=== PATIENT | male | born 1975 | race Caucasian/White ===

== ENCOUNTER 2020-04-09 06:08 | Emergency (ER) | payer MEDICAID ==
[~2020-04-09] VITALS: Ht 180.3 cm; Wt 94.3 kg
[2020-04-09 06:43] VITALS: BP_SYST 126
[2020-04-09 08:27] VITALS: BP_SYST 126
== END 2020-04-09 08:22 | disposition home or self-care (01) ==
LOC: SED 06:08
DX: H00.012 Hordeolum externum right lower eyelid (principal); M25.562 Pain in left knee
CPT/HCPCS: 73564; 99283

== ENCOUNTER 2020-06-08 18:32 | Emergency (ER) | payer MEDICAID ==
[~2020-06-08] VITALS: Ht 182.9 cm; Wt 88.5 kg
--- NOTE | 2020-06-08 18:40 | NUR ---
Pt walked in to ER with c/o choking. 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 V/S stable, pt is afebrile. Placed in waiting room until bed available.
[2020-06-08 18:48] VITALS: BP_SYST 140
--- NOTE | 2020-06-08 19:10 | NUR ---
ER Dr. Baugh at bedside examining patient.
[2020-06-08] MEDS ORDERED: DIPHENHYDRAMINE INJ 50 MG/ML VIAL IM ONE (19:15)
[2020-06-08 19:26] VITALS: BP_SYST 140
[2020-06-08] MEDS ORDERED: ONDANSETRON HCL 4 MG/2 ML VIAL ONE (21:58)
[2020-06-08] MEDS ORDERED: KETOROLAC TROMETHAMINE 30 MG VIAL ONE (21:58)
--- NOTE | 2020-06-09 18:38 | NUR ---
REFERANCE DOWNTIME PAPERWORK
== END 2020-06-08 23:56 | disposition home or self-care (01) ==
LOC: SED 18:32
DX: S10.15XA Superficial foreign body of throat, initial encounter (principal); I10 Essential (primary) hypertension; X58.XXXA Exposure to other specified factors, initial encounter; Y93.89 Activity, other specified; Y92.89 Other specified places as the place of occurrence of the external cause; Y99.8 Other external cause status
CPT/HCPCS: 70360; 70490; 96372; 99284; J1200; J1885; J2405

== ENCOUNTER 2021-08-03 11:44 | Emergency (ER) | payer MEDICAID ==
[~2021-08-03] VITALS: Ht 180.3 cm; Wt 88.5 kg
[2021-08-03 12:00] VITALS: BP_SYST 130
[2021-08-03 12:53] LABS: BASOPHILS % (AUTO) 0.7 % (0.0-2.0); EOSINOPHILS # (AUTO) 0.2 K/uL (0.0-0.4); EOSINOPHILS % (AUTO) 3.9 % (0.0-4.0); HEMATOCRIT 44.3 % (36-54); HEMOGLOBIN 15.1 g/dL (14.0-18.0); LYMPHOCYTES # (AUTO) 2.2 K/uL (1.0-5.5); MEAN CORPUSCULAR HEMOGLOBIN 29 pg (27-31); MEAN CORPUSCULAR HGB CONC 34 % (32-36); MEAN CORPUSCULAR VOLUME 85 fL (79.0-98.0); MONOCYTES # (AUTO) 0.4 K/uL (0.0-1.0); MONOCYTES % (AUTO) 8.7 % (1.7-9.3); NEUTROPHILS # (AUTO) 1.5 K/uL (1.8-7.7); NEUTROPHILS % (AUTO) 35.7 % (40.0-70.0); PLATELET COUNT (AUTO) 169 K/uL (130-430); RED CELL DISTRIBUTION WIDTH 13.7 % (9.0-15.0); WHITE BLOOD COUNT (AUTO) 4.3 K/uL (4.8-10.8)
[2021-08-03 13:04] LABS: CALCIUM 8.9 mg/dL (8.4-11.0); CREATININE 1.42 mg/dL (0.55-1.30); POTASSIUM 4.4 mmol/L (3.5-5.1)
[2021-08-03 13:10] LABS: ALBUMIN 3.9 g/dL (3.4-4.8); TOTAL BILIRUBIN 0.6 mg/dL (0.0-1.0)
[2021-08-03 13:18] LABS: PROTHROMBIN TIME 10.6 SECS (9.5-12.5)
[2021-08-03 15:31] VITALS: BP_SYST 128
[2021-08-04] MEDS ORDERED: IBUPROFEN 800 MG TABLET ONE (00:37)
== END 2021-08-03 15:31 | disposition home or self-care (01) ==
LOC: SED 11:44
DX: R20.2 Paresthesia of skin (principal); I49.9 Cardiac arrhythmia, unspecified
CPT/HCPCS: 36415; 70450-TC; 71045; 76376; 80053; 83605; 84484; 85025; 85610-TC; 85730-TC; 93005; 99285

== ENCOUNTER 2022-07-31 18:49 | Emergency (ER) | payer MEDICAID ==
[~2022-07-31] VITALS: Ht 182.9 cm; Wt 93.0 kg
[2022-07-31 19:41] VITALS: BP_SYST 138
--- NOTE | 2022-07-31 19:46 | NUR ---
Patient triaged and placed in waiting room. VS checked and patient appears in no acute distress at this time. Accompanied by self , awaiting available bed, and MD notified of need for MSE.
--- NOTE | 2022-07-31 19:51 | NUR ---
Patient left without being seen. No further treatment provided. ER Md aware
== END 2022-07-31 19:51 | disposition left against medical advice (07) ==
LOC: SED 18:49
DX: R51.9 Headache, unspecified (principal); Z53.21 Procedure and treatment not carried out due to patient leaving prior to being seen by health care provider